=== PATIENT | male | born 1980 | race Caucasian/White ===

== ENCOUNTER 2023-12-05 11:05 | Day surgery (SDC) | payer BC, SELFPAY ==
[2023-12-05] VITALS (11 sets, daily range): BP systolic 123–148; BP diastolic 69–93; PULSE 60–87; RESP 16–18; TEMP 36.4–37.1; O2SAT 93–99; BMI 32.1
--- NOTE | 2023-12-05 11:21 | PRE.ANES_ITS ---
Assessment & Plan Anesthesia* Anesthesia Assessment Anesthesia Assessment: Discussed sedation and/or anesthesia options, risks, benefits, and alternatives with patient/parents/legal guardian/POA. Questions invited. The patient/parents/legal guardian/POA seems to understand and agrees to proceed with anesthesia plan. Reviewed the physical assessment, medical history, allergy history and patient home medications list prior to surgery/procedure/anesthetic and documented any changes. Performed airway and anesthesia risk assessments. 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 When Was Last Pacemaker Check QUESTION #4 FULL TEXT: You/Your Family Experience fever (hyperthermia) with Anesthesia Last Oral Intake Last Oral intake: Last Oral Intake NPO since Meds taken in AM with sips of water? Meds patient instructed to take am of surgery Any additional information?: Yes NPO since: 05:00 (Patient had water at 5 AM.) PONV PONV - integrated circuit fabricator: PONV - integrated circuit fabricator Female HX of Motion Sickness HX of N/V After Surgery Non-Smoker Duration of Surgery greater than 60 minutes Number of Risk Factors PONV Score Respiratory Assessment Respiratory Assessment - integrated circuit fabricator: Respiratory Tract Infection Hx - integrated circuit fabricator Hx Respiratory Tract Infection Any additional information?: Yes Hx Respiratory Tract Infection: No STOP Sleep Apnea STOP Sleep Apnea - integrated circuit fabricator: STOP Sleep Apnea - integrated circuit fabricator Hx Hypertension Hx Sleep Apnea CPAP BIPAP Do you snore loudly (louder than talking or can be heard Do you often feel tired/ fatigued/ sleepy during daytime? Has anyone observed you stop breathing during sleep? STOP Results QUESTION #5 FULL TEXT : Do you snore loudly (louder than talking or can be heard through closed doors)? 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 Specify any problems Hx of Preganancy in last 3 Months Nurse Filling Out Transfusion & Questions: Date: Time: Patient unable to answer at this time (ie. confused, unrespo /Reproduction History /Reproductive History - integrated circuit fabricator: /Reproductive Hx- integrated circuit fabricator Hx Now Gestational Age (in weeks): EDC: Hx Hx Para Hx Section SAB Active Medications Active Medications: Current Medications Generic Name Dose Route Start Last Admin Trade Name Freq PRN Reason Stop Dose Admin Lactated Ringer's 1,000 mls @ 15 mls/hr 12/05/23 11:15 IV .Q48H SAVANAH PFSH Medical History Kidney stones Bladder disease Medical History no medical history Home Medications ?Medication ?Instructions ?Recorded ?Last Taken ?Type NK 12/05/23 Unknown History Allergy/AdvReac Type Severity Reaction Status Date / Time No Known Allergies Allergy Verified 12/05/23 11:32 Family History no significant family his Surgical History History of hernia surgery History of appendectomy Social History Smoking Status: Current every day smoker tobacco type: e-cigarettes Review of Systems (Anesthesia) ROS Narrative System reviewed and no additional complaints, except as documented.
--- NOTE | 2023-12-05 11:39 | HP.PCM_ITS ---
HPI - General General Date of Admission: 12/05/23 Chief Complaint: Right ureteral calculi HPI Narrative VERA PAGAN, is a 43 M who presents to the hospital and severe right flank pain he was presented to [facility] in severe pain they could not get his p ain under control so they called here and he was accepted as a transfer plan to taken to surgery today for cystoscopy and right stent placement to alleviate the obstruction from stone in the distal right ureter. [facility] Medical History Kidney stones Bladder disease Home Medications ?Medication ?Instructions ?Recorded ?Last Taken ?Type NK 12/05/23 Unknown History Allergy/AdvReac Type Severity Reaction Status Date / Time No Known Allergies Allergy Verified 12/05/23 11:32 Surgical History History of hernia surgery History of appendectomy ROS Constitutional Constitutional: Denies chills, fever(s) or malaise Eyes Eyes: Denies blurry vision or change in vision ENT HEENT: Reports none Cardiovascular Cardiovascular: Denies chest pain or palpitations Respiratory/Chest Respiratory/Chest: Denies cough or shortness of breath with exertion Gastrointestinal Gastrointestinal: Denies abdominal pain, constipation or diarrhea Musculoskeletal Musculoskeletal: Denies back pain, joint stiffness or joint swelling Integumentary Integumentary: Denies dry skin, jaundice, lesions or rash Neurologic Neurologic: Denies confusion, syncope or weakness Psychiatric Psychiatric: Reports none; Denies anxiety or depression Endocrine Endocrinology: Denies excessive sweating, fatigue or flushing Hematologic/Lymphatic Hematologic/Lymphatic: Denies anemia, easy bleeding or easy bruising Physical Exam Const alert and oriented x3 General Appearance: cooperative HEENT normocephalic and head/scalp atraumatic Eyes PERRL and EOMs intact bilaterally Neck supple, no JVD and no carotid bruits Resp normal respiratory effort, normal air movement and clear to auscultation bilaterally Cardio regular rate and no murmurs GI normal to inspection, nondistended, normoactive bowel sounds and soft to palpation Extremity normal capillary refill General Extremity: no tenderness to palpation of joints or extremities; Negative for edema Skin no rashes or lesions noted and no wounds General Skin Exam: no breakdown Neuro CN's II-XII intact bilaterally Psych affect normal Appearance: appropriate Assessment & Plan Assessment/Plan (1) Right ureteral calculus: PLAN: Plan for cystoscopy right stent placement
[2023-12-05] MEDS: Lactated Ringers 1,000 ML 15 ML IV (11:44)
[2023-12-05] MEDS: Cefazolin 2 GM in 0.9% Normal Saline (100mL Bag) 100 ML IV (11:53)
--- NOTE | 2023-12-05 12:05 | PCM.PRE.AN2 ---
ASA Classification* ASA Classification ASA Classification: 2 Assessment & Plan Anesthesia* Anesthesia Assessment Anesthesia Assessment: Discussed sedation and/or anesthesia options, risks, benefits, and alternatives with patient/parents/legal guardian/POA. Questions invited. The patient/parents/legal guardian/POA seems to understand and agrees to proceed with anesthesia plan. Reviewed the physical assessment, medical history, allergy history and patient home medications list prior to surgery/procedure/anesthetic and documented any changes. Performed airway and anesthesia risk assessments. Anesthesia Type Anesthesia Type: MAC History Source History Obtained from:: Patient and Chart Anesthesia Focused Assessment* Temperature: 97.6 F Pulse Rate: 79 Blood Pressure: 145/93 Respiratory Rate: 16 Pulse Ox: 97 Oxygen Delivery Method: Room Air Airway Assessment Mouth opens: >3 cm Mallampati Score: I Teeth Condition: Intact Neck Range of motion (ROM): Full ROM Focused Labs Anesthesia Preop lab: CBC CHEMISTRY COAG Pre-Assessment Diagnosis/Proposed Procedure Planned Operative Procedure(s): cysto , stent- right Anesthesia History Anesthesia History - cuff folder: Anesthesia History - cuff folder Hx Hospitalization No 12/05/23 11:33 Any Problems With Anesthesia No 12/05/23 11:33 Cholinesterase deficiency No 12/05/23 11:33 You/Your Family Experience No 12/05/23 11:33 fever (hyperthermia) with Relationship Recent Exposure to Contagious No 12/05/23 11:33 Disease Does patient have nerve No 12/05/23 11:33 stimulator Patient instructed to have device shut off --Does patient have Pacemaker No 12/05/23 11:33 or ICD? When Was Last Pacemaker Check QUESTION #4 FULL TEXT: You/Your Family Experience fever (hyperthermia) with Anesthesia Last Oral Intake Last Oral intake: Last Oral Intake NPO since 23:00 12/05/23 11:33 Meds taken in AM with sips of No 12/05/23 11:33 water? Meds patient instructed to take am of surgery PONV PONV - cuff folder: PONV - cuff folder Female No 12/05/23 11:33 HX of Motion Sickness No 12/05/23 11:33 HX of N/V After Surgery No 12/05/23 11:33 Non-Smoker No 12/05/23 11:33 Duration of Surgery greater No 12/05/23 11:33 than 60 minutes Number of Risk Factors PONV Score Height & Weight Height & Weight: Anesthesia: Height & Weight Height 5 ft 8 in 12/05/23 11:33 Weight: 96 kg 12/05/23 11:33 Body Mass Index (BMI) 32.1 12/05/23 11:33 Respiratory Assessment Respiratory Assessment - cuff folder: Respiratory Tract Infection Hx - cuff folder Hx Respiratory Tract Infection No 12/05/23 11:33 STOP Sleep Apnea STOP Sleep Apnea - cuff folder: STOP Sleep Apnea - cuff folder Hx Hypertension No 12/05/23 11:33 Hx Sleep Apnea No 12/05/23 11:33 CPAP BIPAP Do you snore loudly (louder No 12/05/23 11:33 than talking or can be heard Do you often feel tired/ No 12/05/23 11:33 fatigued/ sleepy during daytime? Has anyone observed you stop No 12/05/23 11:33 breathing during sleep? STOP Results Negative 12/05/23 11:33 QUESTION #5 FULL TEXT : Do you snore loudly (louder than talking or can be heard through closed doors)? 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 Specify any problems Hx of Preganancy in last 3 N/A 12/05/23 11:33 Months Nurse Filling Out Transfusion WESLEY 12/05/23 11:33 & Questions: Date: 12/05/23 12/05/23 11:33 Time: 11:38 12/05/23 11:33 Patient unable to answer at this time (ie. confused, unrespo /Reproduction History /Reproductive History - cuff folder: /Reproductive Hx- cuff folder Hx Now No 12/05/23 11:33 Gestational Age (in weeks): EDC: Hx Hx Para Hx Section SAB Active Medications Active Medications: Current Medications Generic Name Dose Route Start Last Admin Trade Name Freq PRN Reason Stop Dose Admin Lactated Ringer's 1,000 mls @ 15 mls/hr 12/05/23 11:15 12/05/23 11:44 IV 15 mls/hr .Q48H SAVANAH Administration Cefazolin Sodium 2 gm/ Sodium 110 mls @ 150 mls/hr 12/05/23 11:31 Chloride IV 12/05/23 12:14 X1 ONE PFSH Medical History Kidney stones Bladder disease Medical History no medical history Home Medications ?Medication ?Instructions ?Recorded ?Last Taken ?Type NK 12/05/23 Unknown History Allergy/AdvReac Type Severity Reaction Status Date / Time No Known Allergies Allergy Verified 12/05/23 11:32 Family History no significant family his Surgical History History of hernia surgery History of appendectomy Social History Smoking Status: Current every day smoker tobacco type: e-cigarettes Review of Systems (Anesthesia) ROS Narrative System reviewed and no additional complaints, except as documented.
--- NOTE | 2023-12-05 12:24 | OP.PCM_ITS ---
Report of Operation Date of Procedure: 12/05/23 Pre-Operative Diagnosis: right ureteral calculi Post-Operative Diagnosis: same Surgery/Procedure Performed:: cystoscopy and right stent and retrograde pyelogram Description of Surgical Findings:: Patient was taken back to the operating room after induction of general anesthesia, the patient was placed in dorsolithotomy position. The urethra and genitals were prepped and draped in usual sterile fashion. Using a 21 Congolese rigid cystourethroscope the entire length of the urethra was normal then went into the bladder. Identified the trigone the left and right ureteral orifice. I then cannulated the right orifice and advanced a wire up into the kidney. I then backloaded a 5 Congolese open ended catheter over the wire and injected contrast to delineate the anatomy. After the retrograde was performed I then used fluoroscopic images and guidance to advanced a wire up into the kidney and over the 0.038 glidewire I advanced a 6 Congolese by 26 cm double pigtail stent. I then pulled the 0.038 Glidewire off and the stent coiled in the kidney bladder good position. The bladder was then drained. We confirmed the position of the stent by fluoroscopy. Patient anesthetic was reversed and was taken back to the PACU in good condition. Surgeon: Winston Duval Type of Anesthesia: General Drains: rigtht stent Admit VTE Documentation VTE Present on Admission: No VTE Mechan Device Prophylaxis: SCD's VTE Pharm Prophylaxis ordered?: No
--- NOTE | 2023-12-05 12:24 | EX.PCM.DISCH ---
Discharge Instructions Procedure Urology Diet Discharge Diet: No restrictions Activity Discharge Activity: Return to Normal Activity and May Not Drive (while taking narcotic pain medications.) Dressing / Incision Call your doctor if you observe: Fever of 101 or Higher Follow Up Care Please Follow Up With: Winston Duval MD When: Call [phone] for an appointment Test Results: Test results from this visit will be discussed in further detail at your follow-up appointment, if applicable. Discharge Plan Admission Primary Reason for Your Visit: stent on right for stone Attending Provider: Winston Duval Primary Care Provider: Care Physician,No Primary Instructions Print Language: Djiboutian Discharge Orders/Prescriptions Prescriptions: No Action NK Referrals / Follow Up: Winston Duval MD [Med Staff - Active Staff] - Care Physician,No Primary [Primary Care Provider] - Disposition Disposition (needs filled in before D/C Order can be placed): Home, Self Care
--- NOTE | 2023-12-05 12:30 | PCM.POST.ANE ---
Anesthesia: Postop Eval I Current Vital Signs Temperature: 98.8 F Pulse Rate: 87 Blood Pressure: 123/78 Respiratory Rate: 16 Pulse Ox: 94 Oxygen Delivery Method: Room Air Assessment Airway patent: Yes Spontaneous unlabored respirations: Yes Mental status: Awake and Calm nausea: No Vomiting: No Anesthesia Complication: No Fluid Hydration Crystalloid volume administer (ml): 600 Total IV fluid infused: 600 Progress Note Anesthesia document: Postop Eval 1 completed: Yes
[2023-12-05] MEDS: Ketorolac 15 MG/ML Vial IV (13:18)
--- NOTE | 2023-12-05 13:48 | PCM.POSTANE2 ---
Anesthesia Postop Eval I Sum Postop Eval Completion status Anesthesia document: Postop Eval 1 completed: Yes Anesthesia Postop Eval I Summary Anesthesia Postop Eval I Summary: Anesthesia Postop Eval I: Assessment Summary Airway patent Yes 12/05/23 12:39 [email or web address] [email or web address] Spontaneous unlabored Yes 12/05/23 12:39 [email or web address] DIRECTOR.[email or web address] respirations Mental status Awake,Calm 12/05/23 12:39 [email or web address] DIRECTOR.[email or web address] nausea No 12/05/23 12:39 RADIO DIRECTOR.[email or web address] Vomiting No 12/05/23 12:39 RADIO DIRECTOR.[email or web address] Anesthesia Postop Eval I: Fluid Summary Crystalloid volume administer 600 12/05/23 12:39 RADIO DIRECTOR.[email or web address] (ml) Colloids volume administered ( ml) Blood Product volume administered (ml) Total IV fluid infused 600 12/05/23 12:39 RADIO DIRECTOR.GDOTT Anesthesia Postop Eval I: Summary Notes Anesthesia Complication No 12/05/23 12:39 RADIO DIRECTOR.GDOTT Anesthesia Complication Comment: Post-operative progress note Anesthesia: Postop Eval II Evaluation Mental status: Awake and Calm Pain Level: 4 nausea: No Vomiting: No Complications Anesthesia Complication: No
--- NOTE | 2023-12-05 13:48 | POSTOPAN2_ITS ---
Anesthesia Postop Eval I Sum Postop Eval Completion status Anesthesia document: Postop Eval 1 completed: Yes Anesthesia Postop Eval I Summary Anesthesia Postop Eval I Summary: Anesthesia Postop Eval I: Assessment Summary Airway patent Yes 12/05/23 12:39 [email or web address] [email or web address] Spontaneous unlabored Yes 12/05/23 12:39 CHEMISTRY TEACHER.GDOTT respirations Mental status Awake,Calm 12/05/23 12:39 [email or web address] [email or web address].GDOTT nausea No 12/05/23 12:39 CHEMISTRY [email or web address].GDOTT Vomiting No 12/05/23 12:39 CHEMISTRY [email or web address].GDOTT Anesthesia Postop Eval I: Fluid Summary Crystalloid volume administer 600 12/05/23 12:39 CHEMISTRY TEACHER.GDOTT (ml) Colloids volume administered ( ml) Blood Product volume administered (ml) Total IV fluid infused 600 12/05/23 12:39 CHEMISTRY TEACHER.GDOTT Anesthesia Postop Eval I: Summary Notes Anesthesia Complication No 12/05/23 12:39 CHEMISTRY [email or web address].GDOTT Anesthesia Complication Comment: Post-operative progress note Anesthesia: Postop Eval II Evaluation Mental status: Awake and Calm Pain Level: 4 nausea: No Vomiting: No Complications Anesthesia Complication: No
== END 2023-12-05 13:54 | disposition home or self-care (01) ==
LOC: SDC 11:13 → AC 11:14
PROVIDERS: Visit Provider Urology
PROC: (CPT 52332; principal; 2023-12-05 12:50)
DX: N20.1 Calculus of ureter (principal); F17.290 Nicotine dependence, other tobacco product, uncomplicated
CPT/HCPCS: 52332; 52351; 00910; 76000; J7120; C1769; C2617; J2405

== ENCOUNTER 2023-12-11 09:04 | Day surgery (SDC) | payer BC, SELFPAY ==
[2023-12-11] VITALS (8 sets, daily range): BP systolic 129–156; BP diastolic 81–98; PULSE 50–74; RESP 16–18; TEMP 36.1–36.7; O2SAT 94–100; BMI 31.1
--- NOTE | 2023-12-11 09:29 | PCM.PRE.AN2 ---
ASA Classification* ASA Classification ASA Classification: 2 Assessment & Plan Anesthesia* Anesthesia Assessment Anesthesia Assessment: Discussed sedation and/or anesthesia options, risks, benefits, and alternatives with patient/parents/legal guardian/POA. Questions invited. The patient/parents/legal guardian/POA seems to understand and agrees to proceed with anesthesia plan. Reviewed the physical assessment, medical history, allergy history and patient home medications list prior to surgery/procedure/anesthetic and documented any changes. Performed airway and anesthesia risk assessments. 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 When Was Last Pacemaker Check QUESTION #4 FULL TEXT: You/Your Family Experience fever (hyperthermia) with Anesthesia Last Oral Intake Last Oral intake: Last Oral Intake NPO since Meds taken in AM with sips of water? Meds patient instructed to take am of surgery PONV PONV - lagging machine operator: PONV - lagging machine operator Female No 12/09/23 08:24 HX of Motion Sickness No 12/09/23 08:24 HX of N/V After Surgery No 12/09/23 08:24 Non-Smoker No 12/09/23 08:24 Duration of Surgery greater No 12/09/23 08:24 than 60 minutes Number of Risk Factors PONV Score Height & Weight Height & Weight: Anesthesia: Height & Weight Height 5 ft 8 in 12/05/23 11:33 Respiratory Assessment Respiratory Assessment - lagging machine operator: Respiratory Tract Infection Hx - lagging machine operator Hx Respiratory Tract Infection No 12/09/23 08:24 STOP Sleep Apnea STOP Sleep Apnea - lagging machine operator: STOP Sleep Apnea - lagging machine operator Hx Hypertension Yes: NO MEDS PRESENTLY 12/09/23 08:24 Hx Sleep Apnea No 12/09/23 08:24 CPAP BIPAP Do you snore loudly (louder No 12/09/23 08:24 than talking or can be heard Do you often feel tired/ No 12/09/23 08:24 fatigued/ sleepy during daytime? Has anyone observed you stop No 12/09/23 08:24 breathing during sleep? STOP Results Negative 12/09/23 08:24 QUESTION #5 FULL TEXT : Do you snore loudly (louder than talking or can be heard through closed doors)? 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 Specify any problems Hx of Preganancy in last 3 N/A 12/09/23 08:24 Months Nurse Filling Out Transfusion VCHRISTIN 12/09/23 08:24 & Questions: Date: 12/09/23 12/09/23 08:24 Time: 08:25 12/09/23 08:24 Patient unable to answer at this time (ie. confused, unrespo /Reproduction History /Reproductive History - lagging machine operator: /Reproductive Hx- lagging machine operator Hx Now Gestational Age (in weeks): EDC: Hx Hx Para Hx Section SAB Active Medications Active Medications: Current Medications Generic Name Dose Route Start Last Admin Trade Name Freq PRN Reason Stop Dose Admin Cefazolin Sodium 2 gm/ Sodium 110 mls @ 150 mls/hr 12/11/23 11:10 Chloride IV 12/11/23 11:53 PREOP ONE Lactated Ringer's 1,000 mls @ 15 mls/hr 12/11/23 09:15 IV .Q48H SAVANAH PFSH Medical History Back pain History of ulceration Gastric reflux Smoker History of stress test Hypertension Kidney stones Bladder disease Home Medications ?Medication ?Instructions ?Recorded ?Last Taken ?Type ciprofloxacin HCl 500 mg tablet 500 mg PO BID #10 tabs 12/05/23 Unknown Rx phenazopyridine 100 mg tablet 100 mg PO TID #20 tabs 12/05/23 Unknown Rx (Pyridium) tamsulosin 0.4 mg capsule (Flomax) 0.4 mg PO DAILY #10 caps 12/05/23 Unknown Rx oxycodone 5 mg tablet 5 mg PO Q6H PRN pain 3 days #20 12/09/23 Unknown Rx tabs oxycodone 5 mg tablet 5 mg PO Q6H PRN pain 7 days #20 12/09/23 Unknown Rx tabs Allergy/AdvReac Type Severity Reaction Status Date / Time No Known Allergies Allergy Verified 12/09/23 08:16 Surgical History History of cardiac catheterization Hx of cystoscopy History of hernia surgery History of appendectomy Social History Smoking Status: Current every day smoker tobacco type: e-cigarettes Review of Systems (Anesthesia) ROS Narrative System reviewed and no additional complaints, except as documented.
[2023-12-11] MEDS: Lactated Ringers 1,000 ML 15 ML IV (09:44)
--- NOTE | 2023-12-11 13:15 | DCINST_ITS ---
Discharge Instructions Diet Discharge Diet: No restrictions Activity Discharge Activity: Return to Normal Activity and May Not Drive (while taking narcotic pain medications.) Dressing / Incision Call your doctor if you observe: Fever of 101 or Higher Follow Up Care Please Follow Up With: Winsotn Duval MD When: Call [phone] for an appointment Test Results: Test results from this visit will be discussed in further detail at your follow- up appointment, if applicable. Discharge Plan Admission Primary Reason for Your Visit: laser stone Attending Provider: Winston Duval Primary Care Provider: Care Physician,No Primary Instructions Print Language: Liberian Discharge Orders/Prescriptions Prescriptions: New ciprofloxacin HCl [Cipro] 500 mg tablet 500 mg PO BID Qty: 6 0RF Continued ciprofloxacin HCl 500 mg tablet 500 mg PO BID Qty: 10 0RF tamsulosin [Flomax] 0.4 mg capsule 0.4 mg PO DAILY Qty: 10 0RF phenazopyridine [Pyridium] 100 mg tablet 100 mg PO TID Qty: 20 0RF oxycodone 5 mg tablet 5 mg PO Q6H PRN (Reason: pain) 7 Days Qty: 20 0RF oxycodone 5 mg tablet 5 mg PO Q6H MDD ok to fill early PRN (Reason: pain) 3 Days Qty: 20 0RF Referrals / Follow Up: Winston Duval MD [Med Staff - Active Staff] - Care Physician,No Primary [Primary Care Provider] - Disposition Disposition (needs filled in before D/C Order can be placed): Home, Self Care
--- NOTE | 2023-12-11 13:15 | PCM.HP.STD ---
HPI - General General Date of Service: 12/11/23 Chief Complaint: Patient with a right ureteral calculi HPI Narrative VERA PAGAN, is a 43 M who presents patient presents for lasering of the right ureteral calculi he had stent placed last week for severe pain and stone. [facility] Medical History Back pain History of ulceration Gastric reflux Smoker History of stress test Hypertension Kidney stones Bladder disease Home Medications ?Medication ?Instructions ?Recorded ?Last Taken ?Type ciprofloxacin HCl 500 mg tablet 500 mg PO BID #10 tabs 12/05/23 Unknown Rx phenazopyridine 100 mg tablet 100 mg PO TID #20 tabs 12/05/23 12/10/23 20:00 Rx (Pyridium) tamsulosin 0.4 mg capsule (Flomax) 0.4 mg PO DAILY #10 caps 12/05/23 12/10/23 20:00 Rx oxycodone 5 mg tablet 5 mg PO Q6H PRN pain 3 days #20 12/09/23 Unknown Rx tabs oxycodone 5 mg tablet 5 mg PO Q6H PRN pain 7 days #20 12/09/23 12/11/23 04:00 Rx tabs ciprofloxacin HCl 500 mg tablet 500 mg PO BID #6 tabs 12/11/23 Unknown Rx (Cipro) Allergy/AdvReac Type Severity Reaction Status Date / Time No Known Allergies Allergy Verified 12/11/23 09:37 Surgical History History of cardiac catheterization Hx of cystoscopy History of hernia surgery History of appendectomy Social History Smoking Status: Current every day smoker tobacco type: e-cigarettes Vital Signs Vital Signs Vital Signs: 12/11/23 09:39 12/11/23 09:39 Temperature 98.1 F Temperature Source Temporal Pulse Rate 64 Respiratory Rate 18 Respiratory Pattern Normal Blood Pressure 156/98 H Blood Pressure Mean 117 Blood Pressure Source Monitor Blood Pressure Position Sitting Blood Pressure Location Left Arm Pulse Ox 100 Oxygen Delivery Method Room Air Weight Weight: 93 kg Body Mass Index (BMI) 31.1
[2023-12-11] MEDS: Cefazolin 2 GM in 0.9% Normal Saline (100mL Bag) 100 ML IV (13:30)
--- NOTE | 2023-12-11 13:54 | OP.PCM_ITS ---
Report of Operation Date of Procedure: 12/11/23 Pre-Operative Diagnosis: Right ureteral calculi Post-Operative Diagnosis: The same Surgery/Procedure Performed:: Cystoscopy right ureteroscopy laser lithotripsy of stone and removal of stent Description of Surgical Findings:: Patient was taken back to the operating room and a smooth induction of anesthesia show he was placed in dorsolithotomy position. The penis and testicles were prepped and draped in usual sterile fashion went in the bladder with a 21 [place] rigid cystoscopy ureters grabbed the existing stent pulled out the meatus put a wire through the stent and then over the wire went in with a flexible 7 Barb[place] Olympus ureteroscope was able to get into the ureter quite easily encountered the stone and I then used a 300 ?m laser fiber with thulium setting and pulverized stone into little tiny pieces I then worked my way up into the ureter and all the way up the kidney I encountered another stone fragmented kidney this was lasered completely I then worked my way down the uret er no other fragments were seen along the course of the ureter then remove the ureteroscope. No stent was left patient's bladder was drained is taken back to PACU in good condition. Surgeon: Winston Duval Type of Anesthesia: General Drains: none Admit VTE Documentation VTE Present on Admission: No VTE Mechan Device Prophylaxis: SCD's VTE Pharm Prophylaxis ordered?: No
--- NOTE | 2023-12-11 14:02 | PCM.POST.ANE ---
Anesthesia: Postop Eval I Current Vital Signs Temperature: 97.5 F Pulse Rate: 72 Blood Pressure: 143/85 Respiratory Rate: 16 Pulse Ox: 95 Oxygen Delivery Method: Room Air Assessment Airway patent: Yes Spontaneous unlabored respirations: Yes Mental status: Asleep nausea: No Vomiting: No Anesthesia Complication: No Fluid Hydration Crystalloid volume administer (ml): 1,000 Total IV fluid infused: 1,000 Progress Note Anesthesia document: Postop Eval 1 completed: Yes
[2023-12-11] MEDS: Ketorolac 15 MG/ML Vial IV (14:17)
--- NOTE | 2023-12-11 14:55 | POSTOPAN2_ITS ---
Anesthesia Postop Eval I Sum Postop Eval Completion status Anesthesia document: Postop Eval 1 completed: Yes Anesthesia Postop Eval I Summary Anesthesia Postop Eval I Summary: Anesthesia Postop Eval I: Assessment Summary Airway patent Yes 12/11/23 14:03 INTERNAL INVESTIGATOR.[email or web address] Spontaneous unlabored Yes 12/11/23 14:03 INTERNAL INVESTIGATOR.[email or web address] respirations Mental status Asleep 12/11/23 14:03 INTERNAL INVESTIGATOR.[email or web address] nausea No 12/11/23 14:03 INTERNAL INVESTIGATOR.TATIANA Vomiting No 12/11/23 14:03 INTERNAL INVESTIGATOR.TATIANA Anesthesia Postop Eval I: Fluid Summary Crystalloid volume administer 1,000 12/11/23 14:03 INTERNAL INVESTIGATOR.[email or web address] (ml) Colloids volume administered ( ml) Blood Product volume administered (ml) Total IV fluid infused 1,000 12/11/23 14:03 INTERNAL INVESTIGATOR.TATIANA Anesthesia Postop Eval I: Summary Notes Anesthesia Complication No 12/11/23 14:03 INTERNAL INVESTIGATOR.TATIANA Anesthesia Complication Comment: Post-operative progress note Anesthesia: Postop Eval II Evaluation Mental status: Awake Pain Level: 0 nausea: No Vomiting: No
--- NOTE | 2023-12-11 14:55 | PCM.POSTANE2 ---
Anesthesia Postop Eval I Sum Postop Eval Completion status Anesthesia document: Postop Eval 1 completed: Yes Anesthesia Postop Eval I Summary Anesthesia Postop Eval I Summary: Anesthesia Postop Eval I: Assessment Summary Airway patent Yes 12/11/23 14:03 CATHETER BUILDER.[email or web address] Spontaneous unlabored Yes 12/11/23 14:03 CATHETER BUILDER.[email or web address] respirations Mental status Asleep 12/11/23 14:03 CATHETER BUILDER.[email or web address] nausea No 12/11/23 14:03 CATHETER BUILDER.TATIANA Vomiting No 12/11/23 14:03 CATHETER BUILDER.TATIANA Anesthesia Postop Eval I: Fluid Summary Crystalloid volume administer 1,000 12/11/23 14:03 CATHETER BUILDER.[email or web address] (ml) Colloids volume administered ( ml) Blood Product volume administered (ml) Total IV fluid infused 1,000 12/11/23 14:03 CATHETER BUILDER.TATIANA Anesthesia Postop Eval I: Summary Notes Anesthesia Complication No 12/11/23 14:03 CATHETER BUILDER.TATIANA Anesthesia Complication Comment: Post-operative progress note Anesthesia: Postop Eval II Evaluation Mental status: Awake Pain Level: 0 nausea: No Vomiting: No
== END 2023-12-11 14:45 | disposition home or self-care (01) ==
LOC: SDC 09:07 → AC 09:08
PROVIDERS: Referring Provider Urology; Visit Provider Urology
PROC: 0TJ98ZZ Inspection of Ureter, Via Natural or Artificial Opening Endoscopic (ICD-10-PCS; CPT 52352; principal; 2023-12-11 11:00)
DX: N20.1 Calculus of ureter (principal); F17.290 Nicotine dependence, other tobacco product, uncomplicated; Z79.899 Other long term (current) drug therapy
CPT/HCPCS: 52353; J7120; C1769; J2405